=== PATIENT | female | born 1950 | race Two or more races ===

== ENCOUNTER → 2025-05-25 | Outpatient (CLI) | payer MEDICAID, SELFPAY ==
--- NOTE | 2025-05-25 15:36 | XR_ITS ---
EXAMINATION: PA lateral chest 2 views TECHNIQUE: Upright PA lateral chest 2 views Date and time: May 25, 2025, 1601 hours INDICATIONS: Coughing beginning 2 weeks ago. FINDINGS: Normal heart size Stable pulmonary nodule right upper lobe compared with August 22, 2023 Significant hyperexpansion No pneumonia or pulmonary edema IMPRESSION: COPD No pneumonia or pulmonary edema
== END | disposition home or self-care (01) ==
PROVIDERS: PCP Internal Medicine; Referring Provider Internal Medicine; Visit Provider Internal Medicine
DX: J44.9 Chronic obstructive pulmonary disease, unspecified (principal)
CPT/HCPCS: 71046